=== PATIENT | male | born 1940 | race Hispanic/Latino ===

== ENCOUNTER 2017-11-15 07:03 | Inpatient (IN) | payer MEDICARE ==
[~2017-11-15] VITALS: Ht 167.6 cm; Wt 79.7 kg
[2017-11-15] MEDS ORDERED: SODIUM CHLORIDE 0.9% 1000ML 1,000 ML IV ONE ×2 (07:43→10:37)
[2017-11-15 07:52] LABS: BASOPHILS % (AUTO) 0.5 % (0.0-5.0); EOSINOPHILS % (AUTO) 0.6 % (0.0-8.0); HEMATOCRIT 30.9 % (42-54); LYMPHOCYTES % (AUTO) 8.4 % (21.0-51.0); MEAN CORPUSCULAR HEMOGLOBIN 31.9 pg (27.0-33.0); MEAN CORPUSCULAR HGB CONC 34.9 g/dL (32.0-36.0); MEAN CORPUSCULAR VOLUME 91.6 fL (79-99); MONOCYTES % (AUTO) 8.5 % (3.0-13.0); PLATELET COUNT (AUTO) 143 K/uL (130-400); RED BLOOD CELL COUNT(AUTO) 3.37 MIL/uL (4.50-6.20); RED CELL DISTRIBUTION WIDTH 18.5 % (11.0-15.5); WHITE BLOOD COUNT (AUTO) 6.1 K/uL (4.8-10.8)
[2017-11-15 07:59] LABS: INR 1.04 (0.85-1.15); PARTIAL THROMBOPLASTIN TIME 30.4 SEC (26.3-35.5); PROTHROMBIN TIME 10.9 SEC (9.6-11.6)
[2017-11-15 08:06] LABS: B-TYPE NATRIURETIC PEPTIDE 84 pg/mL (0-100)
[2017-11-15 08:07] LABS: BILIRUBIN,TOTAL 0.7 mg/dL (0.2-1.0); CREATININE 2.9 mg/dL (0.5-1.5); POTASSIUM 5.5 mmol/L (3.5-5.1)
[2017-11-15 08:08] LABS: ALBUMIN 2.3 g/dL (3.5-5.0); CREATINE KINASE MB 2.1 ng/mL (0.5-3.6); TOTAL PROTEIN, SERUM 5.7 g/dL (6.0-8.3)
[2017-11-15] MEDS ORDERED: SODIUM CHLORIDE 0.9% 50 ML IV ONE (09:13)
[2017-11-15] MEDS ORDERED: LACTULOSE 20 GM/30 ML UDCUP ONE (09:13)
[2017-11-15] MEDS ORDERED: CEFTRIAXONE SODIUM 2 GM VIAL ONE (09:13)
[2017-11-15 09:26] LABS: APPEARANCE,URINE CLEAR (CLEAR); BILIRUBIN,URINE NEGATIVE (NEGATIVE); COLOR,URINE YELLOW (YELLOW); GLUCOSE, URINE (UA) NEGATIVE (NEGATIVE); KETONES,URINE NEGATIVE (NEGATIVE); LEUKOCYTE ESTERASE ,URINE NEGATIVE (NEGATIVE); NITRATE,URINE NEGATIVE (NEGATIVE); OCCULT BLOOD,URINE NEGATIVE (NEGATIVE); PH,URINE 5.5 (5.0-8.0); PROTEIN,URINE NEGATIVE (NEGATIVE); UROBILINOGEN,URINE 0.2 mg/dL (0.2-1.0)
[2017-11-15] MEDS: MIDODRINE HCL 5 MG TABLET PO SCH ×2 (16:10→22:05)
[2017-11-15] MEDS: SODIUM CHLORIDE 0.9% 1000ML 1,000 ML IV SCH (16:11)
[2017-11-15 16:21] VITALS: BP 86/53
[2017-11-15] MEDS ORDERED: PANT40TA PO (17:07)
[2017-11-15] MEDS ORDERED: LACT10SO32 PO (17:07)
[2017-11-15] MEDS ORDERED: FOLI1CAP2 PO (17:07)
[2017-11-15] MEDS ORDERED: DIATR MEGLU/DIATRIZOATE SODIUM 30 ML BOTTLE ONE (17:45)
[2017-11-15 19:15] VITALS: BP 81/62
[2017-11-15 23:25] VITALS: BP 88/55
[2017-11-16] MEDS: SODIUM CHLORIDE 0.9% 1000ML 1,000 ML IV SCH ×2 (00:56→15:58)
[2017-11-16 04:22] VITALS: BP 92/59
[2017-11-16 05:48] LABS: HEMATOCRIT 27.2 % (42-54); MEAN CORPUSCULAR HEMOGLOBIN 31.8 pg (27.0-33.0); MEAN CORPUSCULAR HGB CONC 34.5 g/dL (32.0-36.0); MEAN CORPUSCULAR VOLUME 92.3 fL (79-99); PLATELET COUNT (AUTO) 103 K/uL (130-400); RED BLOOD CELL COUNT(AUTO) 2.95 MIL/uL (4.50-6.20); WHITE BLOOD COUNT (AUTO) 4.3 K/uL (4.8-10.8)
[2017-11-16 05:59] LABS: CREATININE 2.8 mg/dL (0.5-1.5); MAGNESIUM 2.5 mg/dL (1.80-2.40); POTASSIUM 5.7 mmol/L (3.5-5.1)
[2017-11-16 07:59] VITALS: BP 95/56
[2017-11-16] MEDS: MIDODRINE HCL 5 MG TABLET PO SCH ×3 (08:41→21:44)
[2017-11-16] MEDS ORDERED: PANTOPRAZOLE SODIUM 40 MG TABLET.DR PO SCH (09:00)
[2017-11-16] MEDS ORDERED: SODIUM POLYSTYRENE SULFONATE 15 GM/60 ML ML PO SCH (09:00)
[2017-11-16] MEDS ORDERED: LACTULOSE 20 GM/30 ML UDCUP PO SCH (09:00)
[2017-11-16] MEDS ORDERED: SODIUM BICARBONATE 650 MG TAB PO PRN (10:45)
[2017-11-16 12:00] VITALS: BP 95/62
[2017-11-16] MEDS ORDERED: COMPOUND IV REFRIGERATED 1 EACH IVSOLN MISC PRN (14:15)
[2017-11-16] MEDS: OCTREOTIDE ACETATE 1,000 MCG in SODIUM CHLORIDE 0.9% 95 ML IV SCH (14:21)
[2017-11-16] MEDS: OCTREOTIDE ACETATE 100 MCG/ML AMP IV SCH (14:21)
[2017-11-16] MEDS: PANTOPRAZOLE SODIUM 80 MG in SODIUM CHLORIDE 0.9% 100 ML IV SCH (14:21)
[2017-11-16] MEDS: LACTULOSE 20 GM/30 ML UDCUP PO SCH ×2 (15:57→21:44)
[2017-11-16 16:00] VITALS: BP 89/56
[2017-11-16 19:59] VITALS: BP 97/58
[2017-11-16] MEDS ORDERED: FAMOTIDINE/PF 20 MG/2 ML VIAL IV SCH (21:00)
[2017-11-17] VITALS (7 sets, daily range): BP systolic 81–128; BP diastolic 55–71
[2017-11-17] MEDS: LACTULOSE 20 GM/30 ML UDCUP PO SCH ×5 (01:32→21:56)
[2017-11-17] MEDS: SODIUM CHLORIDE 0.9% 1000ML 1,000 ML IV SCH ×3 (02:23→12:14)
[2017-11-17 05:52] LABS: HEMATOCRIT 25.8 % (42-54); MEAN CORPUSCULAR HEMOGLOBIN 33.1 pg (27.0-33.0); MEAN CORPUSCULAR HGB CONC 35.9 g/dL (32.0-36.0); MEAN CORPUSCULAR VOLUME 92.2 fL (79-99); NUCLEATED RED BLOOD CELLS 0.1 % (0.0-0.19); PLATELET COUNT (AUTO) 118 K/uL (130-400); WHITE BLOOD COUNT (AUTO) 4.2 K/uL (4.8-10.8)
[2017-11-17 06:04] LABS: CREATININE 3.1 mg/dL (0.5-1.5); POTASSIUM 4.4 mmol/L (3.5-5.1)
[2017-11-17] MEDS: PANTOPRAZOLE SODIUM 80 MG in SODIUM CHLORIDE 0.9% 100 ML IV SCH ×2 (06:40→12:32)
[2017-11-17 07:50] LABS: BASOPHILS % (MANUAL) 2 % (0-2); EOSINOPHILS % (MANUAL) 3 % (1-6); LYMPHOCYTES % (MANUAL) 16 % (22-44); MONOCYTES % (MANUAL) 2 % (2-9); SEGMENTED NEUTROPHILS % 77 % (40-70)
[2017-11-17 07:51] LABS: MAN.DIFF COMMENT-IMPRESSION MANUAL DIFFERENTIAL; PLATELET MORPHOLOGY COMMENT SLIGHTLY DECREASED
[2017-11-17] MEDS: MIDODRINE HCL 5 MG TABLET PO SCH ×3 (09:24→21:56)
[2017-11-17] MEDS: OCTREOTIDE ACETATE 100 MCG/ML AMP IV SCH (11:15)
[2017-11-17] MEDS: OCTREOTIDE ACETATE 1,000 MCG in SODIUM CHLORIDE 0.9% 95 ML IV SCH (12:32)
[2017-11-17] MEDS: ALBUMIN (HUMAN) 25% 50 ML IV SCH ×2 (14:22→21:47)
[2017-11-17 20:03] LABS: APPEARANCE,URINE Clear (CLEAR); BILIRUBIN,URINE Negative (NEGATIVE); COLOR,URINE Yellow (YELLOW); GLUCOSE, URINE (UA) Negative (NEGATIVE); KETONES,URINE Negative (NEGATIVE); LEUKOCYTE ESTERASE ,URINE Negative (NEGATIVE); NITRATE,URINE Negative (NEGATIVE); OCCULT BLOOD,URINE Negative (NEGATIVE); PROTEIN,URINE Negative (NEGATIVE); UROBILINOGEN,URINE 0.2 mg/dL (0.2-1.0)
[2017-11-18 03:30] VITALS: BP 91/52
[2017-11-18 05:08] LABS: HEMATOCRIT 25.1 % (42-54); MEAN CORPUSCULAR HEMOGLOBIN 30.8 pg (27.0-33.0); MEAN CORPUSCULAR HGB CONC 33.3 g/dL (32.0-36.0); MEAN CORPUSCULAR VOLUME 92.5 fL (79-99); NUCLEATED RED BLOOD CELLS 0.1 % (0.0-0.19); PLATELET COUNT (AUTO) 99 K/uL (130-400); RED BLOOD CELL COUNT(AUTO) 2.71 MIL/uL (4.50-6.20); WHITE BLOOD COUNT (AUTO) 4.2 K/uL (4.8-10.8)
[2017-11-18 05:20] LABS: CREATININE 3.1 mg/dL (0.5-1.5); POTASSIUM 3.5 mmol/L (3.5-5.1)
[2017-11-18] MEDS: ALBUMIN (HUMAN) 25% 50 ML IV SCH ×3 (06:18→23:42)
[2017-11-18] MEDS: LACTULOSE 20 GM/30 ML UDCUP PO SCH ×3 (06:18→20:00)
[2017-11-18 07:00] VITALS: BP 82/49
[2017-11-18] MEDS: MEGESTROL 400 MG/10 ML UDCUP PO SCH (10:27)
[2017-11-18] MEDS: MIDODRINE HCL 5 MG TABLET PO SCH ×3 (10:27→23:42)
[2017-11-18] MEDS: SODIUM CHLORIDE 0.9% 1000ML 1,000 ML IV SCH (10:27)
[2017-11-18 11:00] VITALS: BP 92/56
[2017-11-18 12:13] LABS: HEMATOCRIT 26.2 % (42-54)
[2017-11-18 15:00] VITALS: BP 87/55
[2017-11-18 19:25] VITALS: BP 104/63
[2017-11-18 19:44] LABS: HEMATOCRIT 26.7 % (42-54)
[2017-11-18 23:20] VITALS: BP 90/54
[2017-11-18] MEDS: PANTOPRAZOLE 40 MG/VIAL IV SCH (23:39)
[2017-11-18] MEDS: SODIUM BICARBONATE 650 MG TAB PO SCH (23:40)
[2017-11-19] VITALS (25 sets, daily range): BP systolic 74–105; BP diastolic 41–62
[2017-11-19] MEDS: SODIUM CHLORIDE 0.9% 1000ML 1,000 ML IV SCH (00:25)
[2017-11-19] MEDS: ALBUMIN (HUMAN) 25% 50 ML IV SCH (05:58)
[2017-11-19] MEDS: LACTULOSE 20 GM/30 ML UDCUP PO SCH ×3 (05:58→21:40)
[2017-11-19 06:56] LABS: POTASSIUM 3.3 mmol/L (3.5-5.1)
[2017-11-19 07:00] LABS: HEMATOCRIT 26.2 % (42-54); MEAN CORPUSCULAR HEMOGLOBIN 32.9 pg (27.0-33.0); MEAN CORPUSCULAR HGB CONC 35.5 g/dL (32.0-36.0); MEAN CORPUSCULAR VOLUME 92.9 fL (79-99); PLATELET COUNT (AUTO) 107 K/uL (130-400); RED BLOOD CELL COUNT(AUTO) 2.82 MIL/uL (4.50-6.20); RED CELL DISTRIBUTION WIDTH 19.2 % (11.0-15.5); WHITE BLOOD COUNT (AUTO) 4.6 K/uL (4.8-10.8)
[2017-11-19] MEDS: PANTOPRAZOLE 40 MG/VIAL IV SCH ×2 (09:00→21:38)
[2017-11-19] MEDS: SODIUM BICARBONATE 650 MG TAB PO SCH ×2 (09:15→21:38)
[2017-11-19] MEDS: MEGESTROL 400 MG/10 ML UDCUP PO SCH (09:15)
[2017-11-19] MEDS: MIDODRINE HCL 5 MG TABLET PO SCH ×3 (09:15→21:38)
[2017-11-19] MEDS ORDERED: PROPOFOL 10 MG/ML 20ML VIAL IV ONE ×2 (14:33)
[2017-11-20 03:00] VITALS: BP 91/59
[2017-11-20 04:16] LABS: BASOPHILS % (AUTO) 0.8 % (0.0-5.0); EOSINOPHILS % (AUTO) 3.4 % (0.0-8.0); HEMATOCRIT 23.9 % (42-54); LYMPHOCYTES % (AUTO) 15.5 % (21.0-51.0); MEAN CORPUSCULAR HEMOGLOBIN 33.4 pg (27.0-33.0); MEAN CORPUSCULAR VOLUME 92.8 fL (79-99); NEUTROPHILS % (AUTO) 69.3 % (40.0-77.0); PLATELET COUNT (AUTO) 89 K/uL (130-400); RED BLOOD CELL COUNT(AUTO) 2.57 MIL/uL (4.50-6.20); RED CELL DISTRIBUTION WIDTH 19.5 % (11.0-15.5); WHITE BLOOD COUNT (AUTO) 4.4 K/uL (4.8-10.8)
[2017-11-20 04:18] LABS: CREATININE 2.9 mg/dL (0.5-1.5); MAGNESIUM 2.1 mg/dL (1.80-2.40); POTASSIUM 3.4 mmol/L (3.5-5.1)
[2017-11-20] MEDS: LACTULOSE 20 GM/30 ML UDCUP PO SCH (06:11)
[2017-11-20 06:30] VITALS: BP 85/57
[2017-11-20] MEDS: SODIUM BICARBONATE 650 MG TAB PO SCH (09:16)
[2017-11-20] MEDS: MEGESTROL 400 MG/10 ML UDCUP PO SCH (09:16)
[2017-11-20] MEDS: MIDODRINE HCL 5 MG TABLET PO SCH (09:16)
[2017-11-20] MEDS: PANTOPRAZOLE 40 MG/VIAL IV SCH (09:16)
[2017-11-20 12:02] VITALS: BP 103/52
[2017-11-20] MEDS ORDERED: SODI650T PO (12:30)
[2017-11-20] MEDS ORDERED: MEGE400O4 PO (12:30)
[2017-11-20] MEDS ORDERED: Midodrine Hcl PO (12:30)
== END 2017-11-20 17:45 | DRG 441 ==
LOC: EDH 07:03 → EDHIP 10:06 → 3AH 15:08
PROVIDERS: ADMIT Family Medicine; ATTEND Family Medicine
PROC: 0DJ08ZZ Inspection of Upper Intestinal Tract, Via Natural or Artificial Opening Endoscopic (ICD-10-PCS; principal; 2017-11-19)
DX: K72.00 Acute and subacute hepatic failure without coma (principal); N17.0 Acute kidney failure with tubular necrosis; E87.2 Acidosis; E44.0 Moderate protein-calorie malnutrition; D62 Acute posthemorrhagic anemia; E87.1 Hypo-osmolality and hyponatremia; E87.5 Hyperkalemia; N18.3 Chronic kidney disease, stage 3 (moderate); K76.6 Portal hypertension; R18.8 Other ascites; E86.0 Dehydration; K29.00 Acute gastritis without bleeding; E87.6 Hypokalemia; K22.8 Other specified diseases of esophagus; K31.89 Other diseases of stomach and duodenum; K27.9 Peptic ulcer, site unspecified, unspecified as acute or chronic, without hemorrhage or perforation; K55.20 Angiodysplasia of colon without hemorrhage; K57.30 Diverticulosis of large intestine without perforation or abscess without bleeding; K64.9 Unspecified hemorrhoids; K74.60 Unspecified cirrhosis of liver; Z87.891 Personal history of nicotine dependence; Z92.3 Personal history of irradiation; Z92.21 Personal history of antineoplastic chemotherapy; Z85.05 Personal history of malignant neoplasm of liver; Z68.28 Body mass index [BMI] 28.0-28.9, adult; Z91.041 Radiographic dye allergy status; Z83.3 Family history of diabetes mellitus; Z82.49 Family history of ischemic heart disease and other diseases of the circulatory system
CPT/HCPCS: 36415; 71045; 74176; 78278; 80048; 80053; 81003; 82140; 82550; 82553; 83540; 83550; 83605; 83735; 83874; 83880; 84300; 84484; 85014; 85018; 85025; 85027; 85610; 85730; 86850; 86900; 86901; 87040; 93005; 97039; A9512; C9113; J0696; J2354; J2704; J7030; P9047; Q9963

== ENCOUNTER 2017-12-03 23:21 | Inpatient (IN) | payer MEDICARE ==
[~2017-12-03] VITALS: Ht 167.6 cm; Wt 71.6 kg
[~2017-12-03 23:21] MED LIST: FOLI1CAP2 PO; LACT10SO32 PO; MEGE400O4 PO; Midodrine Hcl PO; PANT40TA PO; SODI650T PO
[2017-12-04 00:10] LABS: CREATININE 3.6 mg/dL (0.5-1.5); POTASSIUM 4.5 mmol/L (3.5-5.1)
[2017-12-04 00:16] LABS: BASOPHILS % (AUTO) 0.5 % (0.0-5.0); EOSINOPHILS % (AUTO) 0.1 % (0.0-8.0); HEMATOCRIT 28.2 % (42-54); LYMPHOCYTES % (AUTO) 3.9 % (21.0-51.0); MEAN CORPUSCULAR HEMOGLOBIN 31.7 pg (27.0-33.0); MEAN CORPUSCULAR HGB CONC 32.9 g/dL (32.0-36.0); MEAN CORPUSCULAR VOLUME 96.4 fL (79-99); MONOCYTES % (AUTO) 11.2 % (3.0-13.0); NEUTROPHILS % (AUTO) 84.3 % (40.0-77.0); PLATELET COUNT (AUTO) 93 K/uL (130-400); RED BLOOD CELL COUNT(AUTO) 2.93 MIL/uL (4.50-6.20); RED CELL DISTRIBUTION WIDTH 22.9 % (11.0-15.5); WHITE BLOOD COUNT (AUTO) 10.7 K/uL (4.8-10.8)
[2017-12-04 00:25] LABS: ALBUMIN 2.4 g/dL (3.5-5.0); BILIRUBIN,TOTAL 1.2 mg/dL (0.2-1.0); CREATINE KINASE MB 2.6 ng/mL (0.5-3.6); TOTAL PROTEIN, SERUM 5.7 g/dL (6.0-8.3)
[2017-12-04 00:31] LABS: INR 1.09 (0.85-1.15); PARTIAL THROMBOPLASTIN TIME 28.2 SEC (26.3-35.5); PROTHROMBIN TIME 11.4 SEC (9.6-11.6)
[2017-12-04 00:36] LABS: B-TYPE NATRIURETIC PEPTIDE 238 pg/mL (0-100)
[2017-12-04] MEDS ORDERED: LACTULOSE 20 GM/30 ML UDCUP ONE (01:33)
[2017-12-04] MEDS ORDERED: VANCOMYCIN 1GM+NS 250ML 250 ML IV ONE (01:46)
[2017-12-04] MEDS ORDERED: CEFTRIAXONE SODIUM 1 GM ONE (01:47)
[2017-12-04] MEDS ORDERED: LIDOCAINE HCL-MPF 1% 2ML VIAL IJ PRN (05:45)
[2017-12-04] MEDS: SODIUM CHLORIDE 0.9% 1000ML 1,000 ML IV SCH ×2 (05:45→15:44)
[2017-12-04] MEDS ORDERED: POTASSIUM CHLORIDE 20 MEQ ERTAB PO PRN (05:45)
[2017-12-04] MEDS ORDERED: POTASSIUM CHLORIDE 20MEQ/100ML 100 ML IV PRN (05:45)
[2017-12-04] MEDS ORDERED: LACTULOSE 20 GM/30 ML UDCUP PO PRN (05:45)
[2017-12-04 06:43] VITALS: BP 113/56
[2017-12-04 08:18] VITALS: BP 139/66
[2017-12-04] MEDS: PANTOPRAZOLE 40 MG/VIAL IVP SCH (09:25)
[2017-12-04 10:50] LABS: BASOPHILS % (AUTO) 0.7 % (0.0-5.0); EOSINOPHILS % (AUTO) 0.4 % (0.0-8.0); HEMATOCRIT 25.5 % (42-54); LYMPHOCYTES % (AUTO) 9.3 % (21.0-51.0); MEAN CORPUSCULAR HEMOGLOBIN 31.5 pg (27.0-33.0); MEAN CORPUSCULAR HGB CONC 33.9 g/dL (32.0-36.0); MONOCYTES % (AUTO) 11.7 % (3.0-13.0); NEUTROPHILS % (AUTO) 77.9 % (40.0-77.0); PLATELET COUNT (AUTO) 93 K/uL (130-400); RED BLOOD CELL COUNT(AUTO) 2.74 MIL/uL (4.50-6.20); RED CELL DISTRIBUTION WIDTH 22.3 % (11.0-15.5)
[2017-12-04 11:04] LABS: ALBUMIN 2.4 g/dL (3.5-5.0); BILIRUBIN,TOTAL 1.3 mg/dL (0.2-1.0); CREATININE 3.5 mg/dL (0.5-1.5); POTASSIUM 4.1 mmol/L (3.5-5.1); TOTAL PROTEIN, SERUM 5.2 g/dL (6.0-8.3)
[2017-12-04] MEDS: LACTULOSE 20 GM/30 ML UDCUP PO SCH ×3 (12:09→22:10)
[2017-12-04] MEDS: DEXTROSE 5 % AND 0.9 % NACL 1,000 ML IV SCH (12:10)
[2017-12-04 12:22] VITALS: BP 118/71
[2017-12-04] MEDS ORDERED: ALBUMIN (HUMAN) 25% 200 ML IV SCH (14:49)
[2017-12-04 16:00] VITALS: BP 119/73
[2017-12-04 16:37] LABS: CREATININE 3.5 mg/dL (0.5-1.5); POTASSIUM 3.8 mmol/L (3.5-5.1)
[2017-12-04 17:44] LABS: APPEARANCE BODY FLUID SLIGHTLY CLOUDY (CLEAR); COLOR,BODY FLUID LT YELLOW (LT YELLOW); SPECIMENTYPE,BODY FLUID ASCITES; TOTAL VOLUME,BODY FLUID 5500 mL
[2017-12-04 17:45] LABS: BODY FLUID WBC 33 /cu. mm.
[2017-12-04 17:46] LABS: BODY FLUID RBC 870 /cu. mm.
[2017-12-04 17:56] LABS: BF LYMPHOCYTE 50 %; BF MESOTHELIAL 1 %; BF MONOCYTE 2 %; BF OTHER CELLS 17
[2017-12-04 19:42] VITALS: BP 122/75
[2017-12-04 23:52] VITALS: BP 124/75
[2017-12-05] MEDS: CEFTRIAXONE SODIUM 1 GM IVP SCH (01:07)
[2017-12-05] MEDS: LACTULOSE 20 GM/30 ML UDCUP PO SCH ×6 (01:07→21:14)
[2017-12-05] MEDS: SODIUM CHLORIDE 0.9% 1000ML 1,000 ML IV SCH ×2 (01:45→11:45)
[2017-12-05 03:16] LABS: CREATININE 3.3 mg/dL (0.5-1.5); PHOSPHORUS 4.9 mg/dL (2.5-4.9); POTASSIUM 3.5 mmol/L (3.5-5.1)
[2017-12-05 03:42] VITALS: BP 113/87
[2017-12-05] MEDS: POTASSIUM CHLORIDE 10% ELIXIR 20 MEQ/15 ML UDCUP PO PRN ×2 (04:08→06:12)
[2017-12-05] MEDS: DEXTROSE 5 % AND 0.9 % NACL 1,000 ML IV SCH (04:19)
[2017-12-05 09:20] VITALS: BP 143/70
[2017-12-05] MEDS: PANTOPRAZOLE 40 MG/VIAL IVP SCH (09:46)
[2017-12-05] MEDS ORDERED: DEXTROSE 5%-WATER 1,000 ML IV SCH (12:30)
[2017-12-05 12:35] VITALS: BP 121/73
[2017-12-05 17:31] VITALS: BP 122/63
[2017-12-05 19:18] VITALS: BP 124/71
[2017-12-05 23:43] VITALS: BP 112/73
[2017-12-06] MEDS: LACTULOSE 20 GM/30 ML UDCUP PO SCH ×5 (00:17→19:19)
[2017-12-06] MEDS: CEFTRIAXONE SODIUM 1 GM IVP SCH (00:17)
[2017-12-06 03:46] VITALS: BP 123/82
[2017-12-06 04:54] LABS: HEMATOCRIT 26.7 % (42-54); MEAN CORPUSCULAR HEMOGLOBIN 31.8 pg (27.0-33.0); MEAN CORPUSCULAR VOLUME 96.4 fL (79-99); PLATELET COUNT (AUTO) 88 K/uL (130-400); RED BLOOD CELL COUNT(AUTO) 2.76 MIL/uL (4.50-6.20); WHITE BLOOD COUNT (AUTO) 6.8 K/uL (4.8-10.8)
[2017-12-06 05:05] LABS: CREATININE 3.2 mg/dL (0.5-1.5); POTASSIUM 3.4 mmol/L (3.5-5.1)
[2017-12-06 05:21] LABS: BAND NEUTROPHILS % (MANUAL) 7 % (0-2); EOSINOPHILS % (MANUAL) 1 % (1-6); LYMPHOCYTES % (MANUAL) 15 % (22-44); MONOCYTES % (MANUAL) 2 % (2-9); SEGMENTED NEUTROPHILS % 75 % (40-70)
[2017-12-06 05:22] LABS: MAN.DIFF COMMENT-IMPRESSION MANUAL DIFFERENTIAL; PLATELET MORPHOLOGY COMMENT DECREASED
[2017-12-06 07:00] VITALS: BP 105/57
[2017-12-06] MEDS: PANTOPRAZOLE 40 MG/VIAL IVP SCH (09:33)
[2017-12-06] MEDS: VANCOMYCIN 1GM+NS 250ML 250 ML IV SCH (09:34)
[2017-12-06 11:31] VITALS: BP 128/86
[2017-12-06 16:30] VITALS: BP 133/86
[2017-12-06 19:21] VITALS: BP 118/82
[2017-12-06 23:30] VITALS: BP 109/65
[2017-12-07] MEDS: CEFTRIAXONE SODIUM 1 GM IVP SCH (00:14)
[2017-12-07 03:20] VITALS: BP 106/62
[2017-12-07 07:59] VITALS: BP 120/58
[2017-12-07] MEDS: LACTULOSE 20 GM/30 ML UDCUP PO SCH ×2 (09:09→19:39)
[2017-12-07] MEDS: PANTOPRAZOLE SODIUM 40 MG TABLET.DR PO SCH (09:09)
[2017-12-07 11:44] VITALS: BP 107/57
[2017-12-07] MEDS: DEXTROSE 5%-WATER 1,000 ML IV SCH (13:30)
[2017-12-07 14:59] LABS: CREATININE 3.7 mg/dL (0.5-1.5); POTASSIUM 3.6 mmol/L (3.5-5.1)
[2017-12-07 19:15] VITALS: BP 112/68
[2017-12-07 23:18] VITALS: BP 93/61
[2017-12-08] MEDS: CEFTRIAXONE SODIUM 1 GM IVP SCH ×2 (00:14→23:08)
[2017-12-08 03:34] VITALS: BP 97/58
[2017-12-08 03:58] LABS: HEMATOCRIT 24.9 % (42-54); MEAN CORPUSCULAR HEMOGLOBIN 31.7 pg (27.0-33.0); MEAN CORPUSCULAR HGB CONC 33.2 g/dL (32.0-36.0); MEAN CORPUSCULAR VOLUME 95.5 fL (79-99); PLATELET COUNT (AUTO) 56 K/uL (130-400); RED BLOOD CELL COUNT(AUTO) 2.61 MIL/uL (4.50-6.20); WHITE BLOOD COUNT (AUTO) 5.7 K/uL (4.8-10.8)
[2017-12-08 04:06] LABS: CREATININE 3.6 mg/dL (0.5-1.5); POTASSIUM 3.1 mmol/L (3.5-5.1)
[2017-12-08 04:12] LABS: BAND NEUTROPHILS % (MANUAL) 25 % (0-2); EOSINOPHILS % (MANUAL) 2 % (1-6); LYMPHOCYTES % (MANUAL) 15 % (22-44); MAN.DIFF COMMENT-IMPRESSION MANUAL DIFFERENTIAL; MONOCYTES % (MANUAL) 5 % (2-9); PLATELET MORPHOLOGY COMMENT DECREASED; SEGMENTED NEUTROPHILS % 53 % (40-70)
[2017-12-08 07:47] VITALS: BP 103/60
[2017-12-08] MEDS: MEGESTROL 400 MG/10 ML UDCUP PO SCH (09:47)
[2017-12-08] MEDS: LACTULOSE 20 GM/30 ML UDCUP PO SCH ×2 (09:47→23:08)
[2017-12-08] MEDS: PANTOPRAZOLE SODIUM 40 MG TABLET.DR PO SCH (09:47)
[2017-12-08] MEDS: VANCOMYCIN 1GM+NS 250ML 250 ML IV SCH (09:49)
[2017-12-08 11:28] VITALS: BP 103/67
[2017-12-08] MEDS: DEXTROSE 5%-WATER 1,000 ML IV SCH (13:33)
[2017-12-08 16:54] VITALS: BP 98/60
[2017-12-08 19:55] VITALS: BP 98/58
[2017-12-08 23:31] VITALS: BP 105/68
[2017-12-09] MEDS: DEXTROSE 5%-WATER 1,000 ML IV SCH (02:19)
[2017-12-09 04:06] VITALS: BP 103/63
[2017-12-09 04:06] LABS: HEMATOCRIT 24.5 % (42-54); MEAN CORPUSCULAR HEMOGLOBIN 32.7 pg (27.0-33.0); MEAN CORPUSCULAR HGB CONC 34.4 g/dL (32.0-36.0); NUCLEATED RED BLOOD CELLS 0.1 % (0.0-0.19); PLATELET COUNT (AUTO) 62 K/uL (130-400); RED BLOOD CELL COUNT(AUTO) 2.58 MIL/uL (4.50-6.20); RED CELL DISTRIBUTION WIDTH 21.4 % (11.0-15.5); WHITE BLOOD COUNT (AUTO) 5.3 K/uL (4.8-10.8)
[2017-12-09 04:24] LABS: ALBUMIN 2.2 g/dL (3.5-5.0); BILIRUBIN,TOTAL 0.6 mg/dL (0.2-1.0); CREATININE 3.9 mg/dL (0.5-1.5); POTASSIUM 3.1 mmol/L (3.5-5.1); TOTAL PROTEIN, SERUM 4.6 g/dL (6.0-8.3)
[2017-12-09 04:34] LABS: % IRON SATURATION 17.7 % (30-44)
[2017-12-09] MEDS: PANTOPRAZOLE SODIUM 40 MG TABLET.DR PO SCH (06:26)
[2017-12-09 07:00] VITALS: BP 98/62
[2017-12-09] MEDS: LACTULOSE 20 GM/30 ML UDCUP PO SCH ×2 (09:13→20:54)
[2017-12-09] MEDS: MEGESTROL 400 MG/10 ML UDCUP PO SCH (09:13)
[2017-12-09] MEDS: FOLIC ACID/VITAMIN B COMP W-C 1 MG CAPSULE PO SCH (09:15)
[2017-12-09 11:00] VITALS: BP 94/68
[2017-12-09] MEDS ORDERED: COMPOUND IV MISC 1 EACH IVSOLN MISC PRN (13:00)
[2017-12-09 16:00] VITALS: BP 91/60
[2017-12-09] MEDS ORDERED: POTASSIUM CHLORIDE 20 MEQ ERTAB PO PRN (17:45)
[2017-12-09] MEDS ORDERED: POTASSIUM CHLORIDE 10% ELIXIR 20 MEQ/15 ML UDCUP PO PRN (17:45)
[2017-12-09 19:58] VITALS: BP 96/61
[2017-12-09] MEDS: IRON SUCROSE COMPLEX 100 MG in SODIUM CHLORIDE 0.9% 50 ML IV SCH (20:50)
[2017-12-09] MEDS: SODIUM BICARBONATE 650 MG TAB PO SCH (20:54)
[2017-12-09 23:27] VITALS: BP 86/58
[2017-12-10] MEDS: CEFTRIAXONE SODIUM 1 GM IVP SCH ×2 (00:15→23:27)
[2017-12-10 03:51] VITALS: BP 94/60
[2017-12-10 05:08] LABS: HEMATOCRIT 25.5 % (42-54); MEAN CORPUSCULAR HGB CONC 33.6 g/dL (32.0-36.0); MEAN CORPUSCULAR VOLUME 95.2 fL (79-99); PLATELET COUNT (AUTO) 55 K/uL (130-400); RED BLOOD CELL COUNT(AUTO) 2.67 MIL/uL (4.50-6.20); RED CELL DISTRIBUTION WIDTH 21.5 % (11.0-15.5); WHITE BLOOD COUNT (AUTO) 5.3 K/uL (4.8-10.8)
[2017-12-10 05:27] LABS: POTASSIUM 3.3 mmol/L (3.5-5.1)
[2017-12-10] MEDS: PANTOPRAZOLE SODIUM 40 MG TABLET.DR PO SCH (06:21)
[2017-12-10 07:40] VITALS: BP 92/58
[2017-12-10] MEDS: FOLIC ACID/VITAMIN B COMP W-C 1 MG CAPSULE PO SCH (09:31)
[2017-12-10] MEDS: MEGESTROL 400 MG/10 ML UDCUP PO SCH (09:31)
[2017-12-10] MEDS: LACTULOSE 20 GM/30 ML UDCUP PO SCH ×2 (09:31→20:46)
[2017-12-10] MEDS: SODIUM BICARBONATE 650 MG TAB PO SCH ×2 (09:31→20:46)
[2017-12-10] MEDS: VANCOMYCIN 1GM+NS 250ML 250 ML IV SCH (09:56)
[2017-12-10 11:25] VITALS: BP 92/63
[2017-12-10] MEDS: MIDODRINE HCL 5 MG TABLET PO SCH ×2 (13:17→20:46)
[2017-12-10 16:20] VITALS: BP 87/61
[2017-12-10 19:53] VITALS: BP 87/51
[2017-12-10] MEDS: IRON SUCROSE COMPLEX 100 MG in SODIUM CHLORIDE 0.9% 50 ML IV SCH (20:45)
[2017-12-10 23:44] VITALS: BP 84/58
[2017-12-11 04:00] VITALS: BP 90/56
[2017-12-11 04:11] LABS: HEMATOCRIT 26.6 % (42-54); MEAN CORPUSCULAR HEMOGLOBIN 33.4 pg (27.0-33.0); MEAN CORPUSCULAR HGB CONC 34.6 g/dL (32.0-36.0); MEAN CORPUSCULAR VOLUME 96.3 fL (79-99); PLATELET COUNT (AUTO) 69 K/uL (130-400); RED BLOOD CELL COUNT(AUTO) 2.76 MIL/uL (4.50-6.20); RED CELL DISTRIBUTION WIDTH 21.6 % (11.0-15.5); WHITE BLOOD COUNT (AUTO) 7.2 K/uL (4.8-10.8)
[2017-12-11 04:24] LABS: CREATININE 4.1 mg/dL (0.5-1.5); MAGNESIUM 2.2 mg/dL (1.80-2.40)
[2017-12-11 07:50] VITALS: BP 90/56
[2017-12-11] MEDS: SODIUM BICARBONATE 650 MG TAB PO SCH (08:59)
[2017-12-11] MEDS: LACTULOSE 20 GM/30 ML UDCUP PO SCH (08:59)
[2017-12-11] MEDS: FOLIC ACID/VITAMIN B COMP W-C 1 MG CAPSULE PO SCH (08:59)
[2017-12-11] MEDS: MEGESTROL 400 MG/10 ML UDCUP PO SCH (08:59)
[2017-12-11] MEDS: PANTOPRAZOLE SODIUM 40 MG TABLET.DR PO SCH (08:59)
[2017-12-11] MEDS: MIDODRINE HCL 5 MG TABLET PO SCH ×2 (09:01→13:16)
[2017-12-11 11:45] VITALS: BP 83/60
[2017-12-11 15:55] VITALS: BP 84/56
== END 2017-12-11 16:48 | DRG 871 ==
LOC: EDH 23:21 → EDHIP 12-04 05:30 → 2DH 12-04 06:29
PROVIDERS: ADMIT Internal Medicine Nephrology; ATTEND Internal Medicine Nephrology
PROC: 0W9G3ZZ Drainage of Peritoneal Cavity, Percutaneous Approach (ICD-10-PCS; principal; 2017-12-04)
DX: A41.9 Sepsis, unspecified organism (principal); E43 Unspecified severe protein-calorie malnutrition; K76.7 Hepatorenal syndrome; K72.00 Acute and subacute hepatic failure without coma; N17.9 Acute kidney failure, unspecified; E87.2 Acidosis; D69.59 Other secondary thrombocytopenia; E87.0 Hyperosmolality and hypernatremia; R18.8 Other ascites; C22.1 Intrahepatic bile duct carcinoma; I12.0 Hypertensive chronic kidney disease with stage 5 chronic kidney disease or end stage renal disease; N18.5 Chronic kidney disease, stage 5; D64.9 Anemia, unspecified; K72.90 Hepatic failure, unspecified without coma; K21.9 Gastro-esophageal reflux disease without esophagitis; N28.9 Disorder of kidney and ureter, unspecified; K74.60 Unspecified cirrhosis of liver; R73.9 Hyperglycemia, unspecified; B96.89 Other specified bacterial agents as the cause of diseases classified elsewhere; E78.5 Hyperlipidemia, unspecified; E87.6 Hypokalemia; Z85.05 Personal history of malignant neoplasm of liver; Z83.3 Family history of diabetes mellitus; Z87.891 Personal history of nicotine dependence; Z92.21 Personal history of antineoplastic chemotherapy; Z92.3 Personal history of irradiation; Z68.25 Body mass index [BMI] 25.0-25.9, adult; Z82.49 Family history of ischemic heart disease and other diseases of the circulatory system
CPT/HCPCS: 36415; 49083; 70450; 71045; 74176; 80048; 80053; 80202; 82140; 82550; 82553; 82728; 83540; 83550; 83605; 83735; 83880; 83935; 84100; 84300; 84484; 84550; 85025; 85027; 85610; 85730; 87040; 87071; 87186; 87205; 88108; 89051; 92610; 93005; 97039; 99291; A4218; A6234; C9113; J0696; J1756; J3370; J3480; J3490; J7042; J7070; P9046